=== PATIENT | male | born 1980 | race Caucasian/White ===

== ENCOUNTER 2017-01-26 09:59 | Emergency (ER) | payer SELFPAY ==
[~2017-01-26] VITALS: Ht 172.7 cm; Wt 72.6 kg
[2017-01-26 10:10] VITALS: BP 139/93
[2017-01-26] MEDS ORDERED: ROBAXIN-750750 MG PO (10:19)
[2017-01-26] MEDS ORDERED: IBUPROFEN600 MG ORAL (10:19)
[2017-01-26 10:30] VITALS: BP 139/93
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
== END 2017-01-26 10:30 | disposition home or self-care (01) ==
LOC: EMR 10:15
DX: S09.90XA Unspecified injury of head, initial encounter (principal); S40.021A Contusion of right upper arm, initial encounter; V13.4XXA Pedal cycle driver injured in collision with car, pick-up truck or van in traffic accident, initial encounter; Y92.410 Unspecified street and highway as the place of occurrence of the external cause
CPT/HCPCS: 99283